=== PATIENT | female | born 1975 | race Caucasian/White ===

== ENCOUNTER 2021-07-18 16:51 | Outpatient (CLI) | payer BC, SELFPAY ==
[2021-07-18 17:15] LABS: Hematocrit 44.3 % (35.0-49.0); Hemoglobin 14.4 g/dL (12.0-15.0); Mean Corpuscular HGB Conc 32.5 g/dL (32.0-36.0); Mean Corpuscular Hemoglobin 30.4 pg (27.0-31.0); Mean Corpuscular Volume 93.5 fL (78.0-102.0); Mean Platelet Volume 9.7 fl (9.2-11.8); Platelet Count Result 316 K/mm3 (150-420); Red Blood Count 4.74 M/mm3 (4.20-5.40); Red Cell Distribution Width 12.8 % (11.6-14.4); White Blood Count 9.7 K/mm3 (4.8-10.8)
[2021-07-18 17:45] LABS: Alanine Aminotransferase 18 U/L (14-59); Albumin Level 4.4 g/dL (3.4-5.0); Alkaline Phosphatase 87 U/L (46-116); Anion Gap 8 mmol/L (8-16); Aspartate Amino Transferase 12 U/L (15-37); Bilirubin,Total 0.5 mg/dL (0.00-1.00); Blood Urea Nitrogen 11 mg/dL (7-18); Carbon Dioxide 31 mmol/L (21-32); Chloride 100 mmol/L (98-108); Cholesterol 155 mg/dL (0-200); Estimated Glomerular Filt Rate > 60; Glucose 85 mg/dL (70-99); HDL Direct 84 mg/dL (40-60); LDL Cholesterol Calculated 51 mg/dL (<130); Osmolality Calculated 286 mOsm/kg (285-295); Potassium 3.7 mmol/L (3.5-5.1); Sodium 139 mmol/L (136-145); Total Protein 8.3 g/dL (6.4-8.2); Triglycerides 99 mg/dL (0-150)
== END 2021-07-18 16:52 | disposition home or self-care (01) ==
LOC: CHSLAB 16:55
PROVIDERS: PCP Family Medicine; Visit Provider Family Medicine
DX: Z00.00 Encounter for general adult medical examination without abnormal findings (principal)
CPT/HCPCS: 36415; 80053; 80061; 85027

== ENCOUNTER 2022-06-13 14:11 | Outpatient (CLI) | payer BC, SELFPAY ==
[2022-06-13 14:32] LABS: Hematocrit 40.3 % (35.0-49.0); Hemoglobin 13.3 g/dL (12.0-15.0); Mean Corpuscular Hemoglobin 30.3 pg (27.0-31.0); Mean Corpuscular Volume 91.8 fL (78.0-102.0); Mean Platelet Volume 9.3 fl (9.2-11.8); Platelet Count Result 328 K/mm3 (150-420); Red Blood Count 4.39 M/mm3 (4.20-5.40); Red Cell Distribution Width 13.5 % (11.6-14.4)
[2022-06-13 15:11] LABS: Alanine Aminotransferase 21 U/L (14-59); Albumin Level 4.3 g/dL (3.4-5.0); Alkaline Phosphatase 113 U/L (46-116); Anion Gap 11 mmol/L (8-16); Aspartate Amino Transferase 20 U/L (15-37); Bilirubin,Total 0.3 mg/dL (0.00-1.00); Blood Urea Nitrogen 12 mg/dL (7-18); Calcium 9.2 mg/dL (8.5-10.1); Carbon Dioxide 30 mmol/L (21-32); Chloride 103 mmol/L (98-108); Cholesterol 149 mg/dL (0-200); Estimated Glomerular Filt Rate > 60; Glucose 84 mg/dL (70-99); HDL Direct 83 mg/dL (40-60); LDL Cholesterol Calculated 53 mg/dL (<130); Osmolality Calculated 296 mOsm/kg (285-295); Potassium 3.9 mmol/L (3.5-5.1); Sodium 144 mmol/L (136-145); Thyroid Stimulating Hormone Reflex 0.96 u/IU/mL (0.36-3.74); Total Protein 8.2 g/dL (6.4-8.2); Triglycerides 65 mg/dL (0-150)
== END 2022-06-13 14:12 | disposition home or self-care (01) ==
LOC: CHSLAB 14:13
PROVIDERS: PCP Family Medicine; Visit Provider Family Medicine
DX: Z00.00 Encounter for general adult medical examination without abnormal findings (principal); E11.9 Type 2 diabetes mellitus without complications
CPT/HCPCS: 36415; 80053; 80061; 84443; 85027